=== PATIENT | female | born 2000 | race Caucasian/White ===

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

== ENCOUNTER 2018-08-29 16:31 | Emergency (ER) | payer OTHER ==
[~2018-08-29] VITALS: Ht 157.5 cm; Wt 54.7 kg
[~2018-08-29 16:31] MED LIST changes: -DOXY-220 PO; +DOXY100T21 PO; +FLUT9.9S NASAL; +IBUP-1542 PO; +SODI126M NASAL
[2018-08-29 16:37] VITALS: BP 122/63; PULSE 81; RESP 20; Ht 157.5 cm; Wt 54.7 kg
[2018-08-29] MEDS ORDERED: KETOROLAC 60 MG INJ IM STA (20:18)
--- NOTE | 2018-08-29 20:36 | ERD ---
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 Denies any treatments. Denies any numbness, tingling, weakness. Denies past medical history. Denies allergies. Denies medications. Denies surgeries. Denies alcohol, tobacco, drug use. Up to date on vaccines. ROS All systems reviewed and are negative except as per history of present illness. Medications Home Meds Active Scripts Ibuprofen* (Motrin*) 600 Mg Tab, 600 MG PO Q6 for pain, #30 TAB Prov:MICHELLE GOODMAN 08/29/18 Fluticasone Propionate (Flonase Allergy Relief) 9.9 Ml [place].susp, 1 SPRAY NASAL DAILY, #1 BOTTLE TO EACH NOSTRIL Prov:LUCAS MALDONADO. SENIOR SYSTEMS ENGINEER 09/07/16 Sodium Chloride (Saline Nasal Mist) 126 Ml Mist, 2 SPRAY NASAL Q2H PRN for NASAL CONGESTION, #1 BOTTLE Prov:LUCAS MALDONADO. SENIOR SYSTEMS ENGINEER 09/07/16 Ibuprofen* (Motrin*) 600 Mg Tab, 600 MG PO Q6H PRN for PAIN AND OR ELEVATED TEMP, #30 TAB Prov:LUCAS MALDONADO. SENIOR SYSTEMS ENGINEER 09/07/16 Metronidazole* (Flagyl*) 500 Mg Tablet, 500 MG PO BID for 10 Days, TAB Prov:MARINA SORTO PA-C 03/23/15 Doxycycline Monohydrate* (Doxycycline Monohydrate*) 100 Mg Tablet, 100 MG PO BID for 10 Days, TAB Prov:MARINA SORTO PA-C 03/23/15 Allergies Allergies: Coded Allergies: No Known Allergy (Unverified , 04/17/14) PMhx/Soc History of Surgery: Yes ( 02/2015) Anesthesia Reaction: No Hx Neurological Disorder: No Hx Respiratory Disorders: No Hx Cardiac Disorders: No Hx Psychiatric Problems: No Hx Miscellaneous Medical Probl: No Hx Alcohol Use: No Hx Substance Use: No Hx Tobacco Use: No FmHx Family History: No diabetes, No coronary disease, No other Physical Exam Vitals Vital Signs Date Temp Pulse Resp B/P (MAP) Pulse Ox O2 O2 Flow FiO2 Time Delivery Rate 08/29/18 98.8 81 20 122/63 98 16:37 (82) Physical Exam Const: No acute distress Head: Atraumatic Eyes: Normal Conjunctiva ENT: Normal External Ears, Nose and Mouth. Neck: Full range of motion. No meningismus. Resp: Clear to auscultation bilaterally Cardio: Regular rate and rhythm, no murmurs Abd: Soft, non tender, non distended. Normal bowel sounds Skin: No petechiae or rashes Back: No midline or flank tenderness Left arm: no cyanosis, or edema. There is no edema, erythema, ecchymosis, or moy deformity noted. Overlying skin is intact. Compartments are soft and warm. There is no pallor or cyanosis. Range of motion, distal pulses, and distal sensation is intact. There is normal cap refill. Neur: Awake and alert Psych: Normal Mood and Affect Results 24 hrs Laboratory Tests Test 08/29/18 20:21 POC Beta HCG, Qualitative NEGATIVE Current Medications Medications Dose Sig/Louis Start Time Status Last (Trade) Ordered Route PRN Stop Time Admin Dose Reason Admin Ketorolac 60 mg ONCE STAT 08/29/18 DC 08/29/18 Tromethamine IM 20:18 20:31 (Toradol) 08/29/18 20:19 Procedures/MDM 17-year-old female presents with complaint of right arm pain for the past 2 weeks. 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 Denies any treatments. Denies any numbness, tingling, weakness. Denies past medical history. Denies allergies. Denies medications. Denies surgeries. Denies alcohol, tobacco, drug use. Up to date on vaccines. There was no acute injury and no indication that x-rays were needed. Patient most likely suffering from muscle strain. Patient given Rx for ibuprofen and told to rest arm I have low suspicion for neurovascular compromise, compartment syndrome, fracture, osteomyelitis, septic joint, or other emergent condition. I have low suspicion for neurovascular compromise, compartment syndrome, fracture, osteomyelitis, septic joint, or other emergent condition. Patient discharged with strict ER precautions. Patient advised to follow up with PMD. All questions answered at discharge. Departure Diagnosis: Primary Impression: Pain of right arm Condition: Stable REXMICHELLE Aug 29, 2018 20:36
[2018-08-29] MEDS ORDERED: IBUP-1542 PO (20:37)
== END 2018-08-29 21:00 | disposition home or self-care (01) ==
LOC: FTE 16:31
DX: M79.601 Pain in right arm (principal)
CPT/HCPCS: 81025; 96372; J1885; Z7502

== ENCOUNTER 2019-01-17 05:47 | Emergency (ER) | payer SELFPAY ==
[~2019-01-17] VITALS: Ht 147.3 cm; Wt 52.6 kg
[~2019-01-17 05:47] MED LIST changes: +LOPE2CAP PO; +ONDA4TAB14 PO
[2019-01-17 05:49] VITALS: BP 136/62; PULSE 85; RESP 18; Ht 147.3 cm; Wt 52.6 kg
[2019-01-17] MEDS ORDERED: ONDANSETRON (ODT) 4 MG TAB ODT STA (06:17)
[2019-01-17] MEDS ORDERED: DIPHENOXYLATE/ATROPINE TAB PO ONE (06:30)
--- NOTE | 2019-01-17 06:30 | ERD ---
ER Documentation Chief Complaint Chief Complaint vomiting/diarrhea x 4 days HPI 22-year-old female presents complaint of vomiting and diarrhea for the past 4 days. Patient states she is been able to tolerate p.o. Patient is ambulatory. Denies abdominal pain, fevers, hematochezia, hematemesis, biliary emesis, right lower quadrant pain, recent travel, shortness of breath, chest pain, diaphoresis, dysphagia, weight loss, polyuria, diabetes, history of atherosclerosis. ROS All systems reviewed and are negative except as per history of present illness. Medications Home Meds Active Scripts Loperamide Hcl* (Imodium*) 2 Mg Capsule, 2 MG PO .AFTER EA LOOSE BM PRN for DIARRHEA, #10 TAB Prov:MICHELLE GOODMAN 01/17/19 Ondansetron (Ondansetron Odt) 4 Mg Tab.rapdis, 4 MG PO Q6H PRN for NAUSEA AND/OR VOMITING, #10 TAB Prov:MICHELLE GOODMAN 01/17/19 Ibuprofen* (Motrin*) 600 Mg Tab, 600 MG PO Q6 for pain, #30 TAB Prov:MICHELLE GOODMAN 08/29/18 Fluticasone Propionate (Flonase Allergy Relief) 9.9 Ml [place].susp, 1 SPRAY NASAL DAILY, #1 BOTTLE TO EACH NOSTRIL Prov:LUCAS MALDONADO. IRRIGATING PUMP OPERATOR 09/07/16 Sodium Chloride (Saline Nasal Mist) 126 Ml Mist, 2 SPRAY NASAL Q2H PRN for NASAL CONGESTION, #1 BOTTLE Prov:LUCAS MALDONADO. IRRIGATING PUMP OPERATOR 09/07/16 Ibuprofen* (Motrin*) 600 Mg Tab, 600 MG PO Q6H PRN for PAIN AND OR ELEVATED TE MP, #30 TAB Prov:LUCAS MALDONADO. IRRIGATING PUMP OPERATOR 09/07/16 Metronidazole* (Flagyl*) 500 Mg Tablet, 500 MG PO BID for 10 Days, TAB Prov:MARINA SORTO PA-C 03/23/15 Doxycycline Monohydrate* (Doxycycline Monohydrate*) 100 Mg Tablet, 100 MG PO BID for 10 Days, TAB Prov:MARINA SORTO PA-C 03/23/15 Allergies Allergies: Coded Allergies: No Known Allergy (Unverified , 04/17/14) PMhx/Soc History of Surgery: Yes ( 02/2015) Anesthesia Reaction: No Hx Neurological Disorder: No Hx Respiratory Disorders: No Hx Cardiac Disorders: No Hx Psychiatric Problems: No Hx Miscellaneous Medical Probl: No Hx Alcohol Use: No Hx Substance Use: No Hx Tobacco Use: No Smoking Status: Never smoker FmHx Family History: No diabetes, No coronary disease, No other Physical Exam Vitals Vital Signs Date Temp Pulse Resp B/P (MAP) Pulse Ox O2 O2 Flow FiO2 Time Delivery Rate 01/17/19 98.0 85 18 136/62 97 05:49 (86) Physical Exam Const: No acute distress Head: Atraumatic Eyes: Normal Conjunctiva ENT: Normal External Ears, Nose and Mouth. Neck: Full range of motion. No meningismus. Resp: Clear to auscultation bilaterally Cardio: Regular rate and rhythm, no murmurs Abd: Soft, non tender, non distended. Normal bowel sounds. Negative McBurney's. Negative Antonio's. Patient able to jump up and down on exam. Skin: No petechiae or rashes Back: No midline or flank tenderness Ext: No cyanosis, or edema Neur: Awake and alert Psych: Normal Mood and Affect Results 24 hrs Current Medications Medications Dose Sig/Louis Start Time Status Last (Trade) Ordered Route PRN Stop Time Admin Dose Reason Admin Ondansetron 4 mg ONCE STAT 01/17/19 DC HCl (Zofran ODT 06:17 01/17/19 Odt) 06:20 1 tab ONCE ONCE 01/17/19 Diphenoxylate PO 06:30 01/17/19 HCl/ 06:31 Atropine (Lomotil) Procedures/MDM MDM: Patient's abdominal exam was benign and there is no indication of any appendicitis or cholecystitis at this time. In addition patient is denying any abdominal pain rather stating her symptoms are limit her vomiting and diarrhea. Patient was given Lomotil and Zofran in the ER and discharged with prescription for Zofran and Imodium. I have low suspicion for acute coronary syndrome, AAA, mesenteric ischemia, lower lobe pneumonia, DKA, bowel perforation, cholecystitis, choledocholithiasis, ascending cholangitis, hepatic abscess, pancreatitis, PUD, splenic rupture, diverticulitis, pyelonephritis, nephrolithiasis, appendicitis, , ectopic , PID, ovarian torsion or tubo-ovarian abscess. At this time, patient is stable for discharge and outpatient management. I have instructed the patient to follow-up with his/her primary care physician in 1-2 days. I have discussed with the patient the possibility of needing to see a specialist for further workup and imaging studies if symptoms persist. I have instructed the patient to promptly return to the ER for any new or worsening symptoms including but not limited to increased pain, fever, nausea, vomiting, weakness or LOC. The patient and/or family expressed understanding of and agreement with this plan. All questions were answered. Home care instructions were provided. DISCLAIMER: Inadvertent spelling and grammatical errors are likely due to EHR/dictation software use and do not reflect on the overall quality of patient care. Also, pl ease note that the electronic time recorded on this note does not necessarily reflect the actual time of the patient encounter. Departure Diagnosis: Primary Impression: Gastroenteritis Condition: Stable Patient Instructions: Diet, Vomiting Or Diarrhea [6Yr-Adult], Gastroenteritis, Viral (6Y-Adult) Additional Instructions: FOLLOW UP WITH YOUR PRIMARY CARE PHYSICIAN TOMORROW.Return to this facility if you are not improving as expected. MICHELLE GOODMAN Jan 17, 2019 06:30
== END 2019-01-17 06:47 | disposition home or self-care (01) ==
LOC: FTE 05:47
DX: K52.9 Noninfective gastroenteritis and colitis, unspecified (principal)
CPT/HCPCS: 81025; 99282

== ENCOUNTER 2019-03-15 11:45 | Emergency (ER) | payer MEDICAID ==
[~2019-03-15] VITALS: Wt 52.1 kg
[~2019-03-15 11:45] MED LIST changes: +ACET-141 PO; -DOXY100T21 PO; +DOXY100T34 PO; +IBUP-1561 PO
[2019-03-15 11:48] VITALS: BP 133/91; PULSE 93; RESP 18
== END 2019-03-15 13:53 | disposition home or self-care (01) ==
LOC: E/R 11:45
DX: M25.511 Pain in right shoulder (principal)
CPT/HCPCS: 73030; 84703; Z7502